=== PATIENT | female | born 1940 | race Hispanic/Latino ===

== ENCOUNTER 2018-08-26 09:19 | Emergency (ER) | payer MEDICARE, BC ==
[2018-08-26 09:30] VITALS: RESP 18; O2SAT 97
[2018-08-26 09:31] VITALS: BMI 29.0
[2018-08-26] MEDS ORDERED: Oxycodone/Acetaminophen 5/325 mg Tab PO STA (10:28)
[2018-08-26] MEDS ORDERED: Oxycodone/Acetaminophen 5/325 mg Tab ONE (10:38)
--- NOTE | 2018-08-26 10:54 | ED PDOC ---
HPI: Back Time Seen by Provider: 08/26/18 10:21 Chief Complaint (Nursing): Back Pain Chief Complaint (Provider): Back pain History Per: Patient History/Exam Limitations: no limitations Onset/Duration Of Symptoms: Days Current Symptoms Are (Timing): Still Present Quality Of Discomfort: "Pain" Additional Complaint(s): 78yo female, comes to ER reporting upper back pain, which has been present for several days. Patient states the pain was worst last night, prompting her ER visit. She has used Tylenol w/ codeine in the past, with improvement of symptoms. Patient denies any injury, fall, trauma to the site. She has currently been using heating pads with minimal relief. No radiation of pain, or other complaints. PMD: Dr. Blake Past Medical History Reviewed: Historical Data, Nursing Documentation, Vital Signs Vital Signs: Last Vital Signs Temp 98.0 F 08/26/18 09:39 Pulse 85 08/26/18 09:39 Resp 18 08/26/18 09:39 BP 124/61 08/26/18 09:39 Pulse Ox 97 08/26/18 09:39 - Medical History PMH: Anemia, Back Problems, HTN, Hypercholesterolemia, Hyperlipidemia, Hypothyroidism Denies: Depression, Chronic Kidney Disease - Surgical History Surgical History: Coronary Stent Denies: Pacemaker - Family History Family History: States: No Known Family Hx - Home Medications Home Medications: Ambulatory Orders Medication Instructions Recorded Levothyroxine Sodium 75 mcg PO DAILY 11/14/12 Aspirin [Ecotrin] 81 mg PO DAILY #60 tab 05/29/15 Clopidogrel Bisulfate [Plavix] 75 mg PO DAILY #60 cap 05/29/15 Atorvastatin Calcium [Lipitor] 80 mg PO QPM 06/02/15 Metoprolol Succinate XL [Toprol XL] 50 mg PO QAM 06/02/15 Cholecalciferol (Vitamin D3) 1,000 unit PO DAILY 01/18/16 [Vitamin D3] Losartan [Cozaar] 100 mg PO DAILY 01/18/16 Magnesium [[employer] Magnesium] 250 mg PO DAILY 01/18/16 [place]-3 Fatty Acids/Fish Oil [Fish 1,000 mg PO DAILY 01/18/16 Oil 1,000 mg Capsule] amLODIPine [Norvasc] 5 mg PO DAILY 01/18/16 Calcium Carbonate [Calcium] 600 mg PO DAILY 10/02/17 Cyclobenzaprine [Flexeril] 5 mg PO HS #4 tab 08/26/18 oxyCODONE/Acetaminophen [Percocet 0.5 ea PO Q6 #6 tab 08/26/18 5/325 mg Tab] - Allergies Allergies/Adverse Reactions: Allergies Allergy/AdvReac Type Severity Reaction Status Date / Time erythromycin base Allergy ANAPHYLAXIS Verified 12/24/15 10:53 prednisone Allergy ANAPHYLAXIS Verified 12/24/15 10:53 Gadolinium-Containing AdvReac Severe VOMITING Verified 02/03/16 13:41 Contrast Medi Review of Systems ROS Statement: Except As Marked, All Systems Reviewed And Found Negative Musculoskeletal: Positive for: Back Pain Neurological: Negative for: Weakness, Numbness Physical Exam - Reviewed Nursing Documentation Reviewed: Yes Vital Signs Reviewed: Yes - Physical Exam Appears: Positive for: Non-toxic Head Exam: Positive for: ATRAUMATIC, NORMAL INSPECTION, NORMOCEPHALIC Skin: Positive for: Normal Color Eye Exam: Positive for: Normal appearance Neck: Positive for: Painless ROM, Supple Cardiovascular/Chest: Positive for: Regular Rate, Rhythm. Negative for: Tachycardia Respiratory: Positive for: Normal Breath Sounds. Negative for: Respiratory Distress Gastrointestinal/Abdominal: Positive for: Soft Back: Positive for: Other (tenderness to right upper back over the scapula; no changes with movement of arm). Negative for: L CVA Tenderness, R CVA Tenderness, Vertebral Tenderness, Decreased ROM Extremity: Positive for: Normal ROM (FROM of all extremities) Neurological/Psych: Positive for: Awake, Alert, Symmetric/Intact Strength, Oriented (x 3) - ECG O2 Sat by Pulse Oximetry: 97 (RA) Pulse Ox Interpretation: Normal Medical Decision Making Medical Decision Makinyo female with musculoskeletal pain Patient given percocet 1 tab in ER. Patient given prescription for flexeril; instructed to take only at night prior to sleep. Discussed risk of flexeril causing dizziness, falls and other injuries due to patient's age and use of cane to ambulate. Patient requesting percocet for pain relief; given prescription for 4 tablets. Patient informed to take 1/2 of a tablet at a time, and instructed to refrain from driving or engaging in other dangerous activity. Patient instructed not to combine percocet and flexeril due to risk of injury. Patient expresses understanding of all instructions. Stable for d/c home, informed to follow up with PMD in 1 week. Scribe Attestation: Documented by Carmella Munoz acting as a scribe for Tiffanie Carrillo MD. Provider Attestation: All medical record entries made by the Scribe were at my direction and personally dictated by me. I have reviewed the chart and agree that the record accurately reflects my personal performance of the history, physical exam, medical decision making, and the department course for this patient. I have also personally directed, reviewed, and agree with the discharge instructions and disposition. Disposition - Clinical Impression Clinical Impression: Upper back strain - Disposition Disposition: Routine/Home Disposition Time: 10:55 Condition: STABLE Additional Instructions: Take Flexeril (muscle relaxant) only at home and prior to sleeping. It may cause dizziness and increases your change of falling and causing further injury. Do not take Flexeril and Percocet at the same time. Only take 1/2 of Percocet at a time and only for severe pain. Take Tyenol or Motrin for moderate pain. Prescriptions: Cyclobenzaprine [Flexeril] 5 mg PO HS #4 tab oxyCODONE/Acetaminophen [Percocet 5/325 mg Tab] 0.5 ea PO Q6 #6 tab Instructions: Muscle Strain (DC) Forms: [employer] ([employer]) Print Language: MALTESE
[2018-08-26 10:59] VITALS: BP 145/71; PULSE 71; TEMP 97.9
== END 2018-08-26 11:02 | disposition home or self-care (01) ==
LOC: H.ER 09:19
DX: S29.012A Strain of muscle and tendon of back wall of thorax, initial encounter (principal); I10 Essential (primary) hypertension; Z95.5 Presence of coronary angioplasty implant and graft; E03.9 Hypothyroidism, unspecified; E78.00 Pure hypercholesterolemia, unspecified; Z79.82 Long term (current) use of aspirin; Z88.1 Allergy status to other antibiotic agents; Z88.8 Allergy status to other drugs, medicaments and biological substances